=== PATIENT | female | born 1985 | race African-American/Black ===

== ENCOUNTER 2017-02-13 13:10 | Emergency (ER) | payer OTHER ==
[2017-02-13 13:17] VITALS: BP 127/65; PULSE 77; TEMP 98.1; BMI 26.9
--- NOTE | 2017-02-13 14:28 | PDOC ---
History of Present Illness - General Chief Complaint: Rash Stated Complaint: RASH Time Seen by Provider: 02/13/17 14:15 - History of Present Illness Initial Comments: 02/13/17 14:22 31-year-old female with a negative past medical history woke up today with scattered multiple itchy bug bites on her body No other family members are affected She also does have a dog in the house, but has no bites around the legs Past History - Past Medical History Allergies/Adverse Reactions: Allergies Allergy/AdvReac Type Severity Reaction Status Date / Time Penicillins Allergy Verified 02/13/17 13:13 Home Medications: Ambulatory Orders Betamethasone/Propylene Glyc [Betamethasone Dp Aug 0.05% Crm] 15 gm TP BID #1 tube 02/13/17 Other medical history: DENIES - Immunization History Td Vaccination: Yes Immunization Up to Date: Yes - Psycho/Social/Smoking Cessation Hx Anxiety: No Suicidal Ideation: No Smoking Status: No Smoking History: Never smoked Number of Cigarettes Smoked Daily: 0 Cigars Per Day: 0 Information on smoking cessation initiated: No Hx Alcohol Use: (occasional) *Physical Exam - Vital Signs Last Vital Signs Temp Pulse Resp BP Pulse Ox 98.1 F 77 18 127/65 98 02/13/17 13:10 02/13/17 13:10 02/13/17 13:10 02/13/17 13:10 02/13/17 13:10 - Physical Exam Comments: 02/13/17 14:23 Physical exam Last Vital Signs Temp Pulse Resp BP Pulse Ox 98.1 F 77 18 127/65 98 02/13/17 13:10 02/13/17 13:10 02/13/17 13:10 02/13/17 13:10 02/13/17 13:10 Patient is alert and ambulatory and answering questions Head is normocephalic and atraumatic Skin- There are scattered insect bites on the abdomen and chest and upper arms There is nothing on the hands or legs Medical Decision Making - Medical Decision Making 02/13/17 14:23 I'm concerned that this may represent bedbug bites, or other flea or insect bites Will treat with steroid cream, and patient will need to have a professional manager ob check her house *DC/Admit/Observation/Transfer Diagnosis at time of Disposition: Insect bites - Discharge Dispostion Condition at time of disposition: Stable - Prescriptions Prescriptions: Betamethasone/Propylene Glyc [Betamethasone Dp Aug 0.05% Crm] 15 gm TP BID #1 tube - Patient Instructions Additional Instructions: You might apply the steroid cream sparingly twice a day to the bites for itching and discomfort As we discussed, please have a professional manager ob check your home for bed bugs, fleas, or other household pests Followup with your primary care physician in 24-48 hours Return immediately if you worsen in any way Take your medications as directed - Post Discharge Activity Work/School Note: Back to Work
== END 2017-02-13 14:36 | disposition home or self-care (01) ==
LOC: FER 13:10
DX: S30.861A Insect bite (nonvenomous) of abdominal wall, initial encounter (principal); S40.869A Insect bite (nonvenomous) of unspecified upper arm, initial encounter; W57.XXXA Bitten or stung by nonvenomous insect and other nonvenomous arthropods, initial encounter; Y93.9 Activity, unspecified; Y92.003 Bedroom of unspecified non-institutional (private) residence as the place of occurrence of the external cause
CPT/HCPCS: 99282-25